=== PATIENT | male | born 1980 | race African-American/Black ===

== ENCOUNTER 2023-11-12 05:44 | Inpatient (IN) | payer OTHER ==
[2023-11-12] MEDS ORDERED: Insulin Regular 300 UNITS/3 ML VIAL ONE (07:32)
[2023-11-12 07:53] LABS: #Basophils 0.03 10x3/uL (0.0-0.2); #Monocytes 0.18 10x3/uL (0.0-1.1); #Neutrophils 1.79 10x3/uL (1.5-8.4); %Basophils 0.9 % (0.0-2.0); %Eosinophils 2.8 % (0.0-6.0); %Lymphocytes 40.1 % (18.0-47.0); %Monocytes 5.1 % (0.0-10.0); %Neutrophils 50.8 % (40.0-75.0); Hematocrit 35.5 % (38.8-50.0); Hemoglobin 13.1 g/dL (13.5-17.5); Mean Corpuscular HGB CONC 36.9 g/dL (32.0-36.0); Mean Corpuscular Hemoglobin 29.6 pg (27.0-33.0); Mean Corpuscular Volume 80.3 fL (81.2-95.1); Mean Platelet Volume 10.4 fL (7.4-10.4); Platelet Count 151 10x3/uL (150-450); RBC Distribution Width 12.7 % (11.5-14.5); Red Blood Cell (RBC) Count 4.42 10x6/uL (4.32-5.72); White Blood Cell (WBC) Count 3.5 10x3/uL (3.5-10.5)
[2023-11-12 08:01] LABS: Clarity Clear (Clear); Leukocyte Negative (Negative); Nitrite Negative (Negative); Specific Gravity, Urine 1.005 (1.005-1.030); pH, Urine 6.5 (5.0-9.0)
[2023-11-12 08:02] LABS: Bacteria/HPF Rare-Few HPF (None Seen); Bilirubin Negative (Negative); Blood, Urine Negative (Negative); Glucose, Urine (Dipstick) >=1000 mg/dL (Negative); Ketone, Urine Negative (Negative); Protein, Urine (Dipstick) Negative (Neg-Trace); RBC/HPF 0-3 HPF (0-3); Squamous Epithelial 0-3 HPF (0-3); Urobilinogen Normal mg/dL (Less than 2); WBC/HPF 0-3 HPF (0-3)
[2023-11-12 08:03] LABS: Urine Culture Reflex No No
[2023-11-12 08:17] LABS: Actual Bicarbonate (HCO3v) 28.2 mEq/L (22-28); Analyzer IN Cardio CS ER; Base Excess 2.8 mEq/L (-2 - +2); Calcium, Ionized (venous) 1.07 mmol/L (1.16-1.32); Chloride (VBG) 95 mmol/L (98-106); Critical Notified By: AS RT; Critical Notified Whom: NWAAS; Hematocrit-VBG 39 % (42.0-52.0); Hemoglobin (Hb) 13.3 g/dL (13.2-17.3); Potassium (VBG) 4.57 mmol/L (3.70-5.30); Puncture Site Other Site; RapidComm Collect By ERS.CCF; Sodium 130 mmol/L (133-146); pH (venous) 7.402 (7.32-7.43)
[2023-11-12 08:34] LABS: Anion Gap 14 mmol/L (10-20); BUN (Urea Nitrogen) 19 mg/dL (8.9-20.6); Calc. Creatinine Clearance 0 mL/min (70-130); Carbon Dioxide 26 mmol/L (22-29); Chloride 93 mmol/L (98-107); Estimated GFR 44; Potassium 4.4 mmol/L (3.5-5.1); Sodium 129 mmol/L (136-145); Troponin I Less than 0.010 ng/mL (< 0.028)
[2023-11-12 08:36] LABS: ALT (SGPT) 53 U/L (8-55); AST (SGOT) 59 U/L (5-34); Alkaline Phosphatase 58 U/L (40-110); Bilirubin, Total 1.2 mg/dL (0.2-1.2); Calcium 9.3 mg/dL (7.6-10.4); Globulin 2.8 g/dL (2.4-3.5); Glucose 682 mg/dL (70-105); Lipase 40 U/L (8-78); Magnesium 1.6 mg/dL (1.6-2.6); Protein, Total 6.8 g/dL (6.0-8.3)
[2023-11-12 08:38] LABS: Lactic Acid 1.6 mmol/L (0.5-2.2)
[2023-11-12 09:51] LABS: Free T4 (Free Thyroxine) 0.43 ng/dL (0.70-1.48)
[2023-11-12] MEDS ORDERED: Hydrocortisone Sod Succ/PF 100 mg/2 ml Vial ONE (10:47)
[2023-11-12] MEDS ORDERED: Senokot S 8.6-50 MG TAB PO PRN (12:21)
[2023-11-12] MEDS ORDERED: Ondansetron PF 4 MG/2 ML Vial IVP PRN (12:21)
[2023-11-12] MEDS ORDERED: Acetaminophen 650 MG Suppository PR PRN (12:21)
[2023-11-12] MEDS ORDERED: Acetaminophen 325 MG TAB PO PRN (12:21)
[2023-11-12] MEDS ORDERED: Ondansetron ODT 4 MG TAB PO PRN (12:21)
[2023-11-12] MEDS ORDERED: Glucagon 1 MG/ML KIT IM PRN (12:27)
[2023-11-12] MEDS ORDERED: Dextrose 50% Abboject 50 ML SYRINGE SLOW IVP PRN (12:27)
[2023-11-12] MEDS ORDERED: Dextrose 5% in Water 1,000 ML IV PRN (12:27)
[2023-11-12] MEDS ORDERED: Electrolyte Replacement Protocol 1 EACH FS SCH (12:30)
[2023-11-12 12:37] VITALS: BMI 24.2
[2023-11-12] MEDS: 1/2 NS w/Potassium 20 mEq 1,000 ML IV SCH (12:46)
[2023-11-12] MEDS: Levothyroxine 100 MCG SDV IVP SCH (12:47)
[2023-11-12] MEDS: SODIUM CHLORIDE FS SCH (12:47)
[2023-11-12] MEDS: Magnesium 2 GM/50 ML(in water) 2 GM in Premix 1 BAG IVPB SCH (12:50)
[2023-11-12] MEDS: Insulin Regular, Human 100 UNIT/ML 10 ML VIAL SC PRN (13:06)
[2023-11-12 13:20] LABS: Magnesium 1.7 mg/dL (1.6-2.6); Phosphorus 2.9 mg/dL (2.3-4.7)
[2023-11-12 13:50] LABS: Amphetamine Not Detected (NotDetected); Barbiturates Screen Not Detected (NotDetected); Benzodiazepine Screen Not Detected (NotDetected); Cocaine Metabolite Screen Detected (NotDetected); Methadone Not Detected (NotDetected); Methamphetamine Not Detected (NotDetected); Opiate Screen Not Detected (NotDetected); Oxycodone Screen Not Detected (NotDetected); Phencyclidine (PCP) Detected (NotDetected); THC/Cannabinoid Screen Not Detected (NotDetected); Tricyclic Screen Not Detected (NotDetected)
[2023-11-12] MEDS: Famotidine/PF 20 mg/2ml Vial SLOW IVP SCH (20:53)
[2023-11-12] MEDS: Atorvastatin Calcium 40 MG TAB PO SCH (20:53)
[2023-11-13 05:03] LABS: Anion Gap 10 mmol/L (10-20); BUN (Urea Nitrogen) 14 mg/dL (8.9-20.6); Calc. Creatinine Clearance 84 mL/min (70-130); Calcium 8.5 mg/dL (7.8-10.44); Carbon Dioxide 23 mmol/L (22-29); Chloride 106 mmol/L (98-107); Estimated GFR 73; Glucose 193 mg/dL (70-105); Magnesium 1.9 mg/dL (1.6-2.6); Potassium 4.1 mmol/L (3.5-5.1); Sodium 135 mmol/L (136-145)
[2023-11-13 05:27] LABS: #Basophils 0.02 10x3/uL (0.0-0.2); #Eosinphils 0.05 10x3/uL (0.0-0.5); #Monocytes 0.26 10x3/uL (0.0-1.1); #Neutrophils 3.18 10x3/uL (1.5-8.4); %Basophils 0.4 % (0.0-2.0); %Eosinophils 0.9 % (0.0-6.0); %Monocytes 4.8 % (0.0-10.0); %Neutrophils 58.5 % (40.0-75.0); Hematocrit 34.7 % (38.8-50.0); Hemoglobin 12.4 g/dL (13.5-17.5); Mean Corpuscular HGB CONC 35.7 g/dL (32.0-36.0); Mean Corpuscular Hemoglobin 29.1 pg (27.0-33.0); Mean Corpuscular Volume 81.5 fL (81.2-95.1); Mean Platelet Volume 10.5 fL (7.4-10.4); Platelet Count 143 10x3/uL (150-450); RBC Distribution Width 12.8 % (11.5-14.5); Red Blood Cell (RBC) Count 4.26 10x6/uL (4.32-5.72); White Blood Cell (WBC) Count 5.4 10x3/uL (3.5-10.5)
[2023-11-13] MEDS: Magnesium 2 GM/50 ML(in water) 2 GM in Premix 1 BAG IVPB SCH (05:50)
[2023-11-13] MEDS: Sodium Chloride 0.9% (PF) 10 ML VIAL FS SCH (05:51)
[2023-11-13] MEDS: Levothyroxine 100 MCG SDV IVP SCH (05:51)
[2023-11-13] MEDS: Enoxaparin 40 MG (0.4 mL) SYRINGE SC SCH (08:29)
[2023-11-13] MEDS: Hydrocortisone Sod Succ/PF 100 mg/2 ml Vial IVP SCH (08:31)
[2023-11-13] MEDS: Lantus 1000 UNITS/10 ML VIAL SC SCH ×2 (16:34→20:06)
[2023-11-13] MEDS: Famotidine 20 MG TAB PO SCH (20:04)
[2023-11-13] MEDS: Insulin Regular, Human 100 UNIT/ML 10 ML VIAL SC PRN (20:06)
[2023-11-14 04:29] LABS: #Basophils 0.02 10x3/uL (0.0-0.2); #Eosinphils 0.01 10x3/uL (0.0-0.5); #Monocytes 0.17 10x3/uL (0.0-1.1); #Neutrophils 4.21 10x3/uL (1.5-8.4); %Basophils 0.3 % (0.0-2.0); %Eosinophils 0.2 % (0.0-6.0); %Lymphocytes 23.9 % (18.0-47.0); %Monocytes 2.9 % (0.0-10.0); %Neutrophils 72.4 % (40.0-75.0); Hematocrit 36.2 % (38.8-50.0); Mean Corpuscular HGB CONC 35.9 g/dL (32.0-36.0); Mean Corpuscular Hemoglobin 29.1 pg (27.0-33.0); Mean Corpuscular Volume 81.2 fL (81.2-95.1); Mean Platelet Volume 10.5 fL (7.4-10.4); Platelet Count 159 10x3/uL (150-450); RBC Distribution Width 12.6 % (11.5-14.5); Red Blood Cell (RBC) Count 4.46 10x6/uL (4.32-5.72); White Blood Cell (WBC) Count 5.8 10x3/uL (3.5-10.5)
[2023-11-14 04:41] LABS: Anion Gap 12 mmol/L (10-20); BUN (Urea Nitrogen) 15 mg/dL (8.9-20.6); Calc. Creatinine Clearance 88 mL/min (70-130); Calcium 8.6 mg/dL (7.8-10.44); Carbon Dioxide 22 mmol/L (22-29); Chloride 106 mmol/L (98-107); Estimated GFR 76; Glucose 226 mg/dL (70-105); Magnesium 1.9 mg/dL (1.6-2.6); Potassium 4.2 mmol/L (3.5-5.1); Sodium 136 mmol/L (136-145)
[2023-11-14] MEDS: Magnesium 2 GM/50 ML(in water) 2 GM in Premix 1 BAG IVPB SCH (08:30)
[2023-11-14 08:44] VITALS: TEMP 98.3
[2023-11-14 10:12] VITALS: BP 97/68
[2023-11-14 13:48] LABS: Hemoglobin A1c 11.7 % (4.0-6.0)
[2023-11-15] MEDS ORDERED: Levothyroxine Sodium 125 MCG TAB PO SCH (06:00)
== END 2023-11-14 12:41 | disposition home or self-care (01) | DRG 81 ==
LOC: CSHERS 05:44 → CSHTELE 11:37
PROVIDERS: ADMIT Family Medicine; ATTEND Family Medicine
DX: E03.5 Myxedema coma (principal); N17.9 Acute kidney failure, unspecified; E03.9 Hypothyroidism, unspecified; F31.9 Bipolar disorder, unspecified; F19.10 Other psychoactive substance abuse, uncomplicated; E10.65 Type 1 diabetes mellitus with hyperglycemia; Z79.899 Other long term (current) drug therapy; Z79.4 Long term (current) use of insulin; Z91.148 Patient's other noncompliance with medication regimen for other reason
CPT/HCPCS: 36415; 36416; 80048; 80053; 80306; 81001; 82010; 82805; 83036; 83605; 83690; 83735; 83880; 83930; 84100; 84439; 84443; 84481; 84484; 85025; 87040; 93005; 93010; 94760; 96361; 96374; 96375; J1650; J1720; J1815; J3475; J3480; S0028

== ENCOUNTER 2023-12-16 18:57 | Emergency (ER) | payer OTHER ==
[2023-12-16] MEDS ORDERED: Ketorolac Tromethamine 30 MG (1 mL) VIAL ONE (19:23)
[2023-12-16 20:07] LABS: #Basophils 0.01 10x3/uL (0.0-0.2); #Eosinphils 0.02 10x3/uL (0.0-0.5); #Monocytes 0.57 10x3/uL (0.0-1.1); #Neutrophils 6.44 10x3/uL (1.5-8.4); %Basophils 0.1 % (0.0-2.0); %Eosinophils 0.3 % (0.0-6.0); %Lymphocytes 8.6 % (18.0-47.0); %Monocytes 7.4 % (0.0-10.0); %Neutrophils 83.1 % (40.0-75.0); Hematocrit 34.7 % (38.8-50.0); Hemoglobin 12.6 g/dL (13.5-17.5); Mean Corpuscular HGB CONC 36.3 g/dL (32.0-36.0); Mean Corpuscular Hemoglobin 29.9 pg (27.0-33.0); Mean Corpuscular Volume 82.4 fL (81.2-95.1); Platelet Count 155 10x3/uL (150-450); RBC Distribution Width 13.4 % (11.5-14.5); Red Blood Cell (RBC) Count 4.21 10x6/uL (4.32-5.72); White Blood Cell (WBC) Count 7.8 10x3/uL (3.5-10.5)
[2023-12-16 20:13] LABS: Anion Gap 16 mmol/L (10-20); BUN (Urea Nitrogen) 14 mg/dL (8.9-20.6); Calc. Creatinine Clearance 0 mL/min (70-130); Carbon Dioxide 24 mmol/L (22-29); Chloride 98 mmol/L (98-107); Estimated GFR 70; Glucose 254 mg/dL (70-105); Potassium 3.8 mmol/L (3.5-5.1); Sodium 134 mmol/L (136-145)
[2023-12-16 20:23] LABS: Bilirubin Neg (Negative); Blood, Urine 25 (Negative); Clarity Clear (Clear); Glucose, Urine (Dipstick) >=1000 mg/dL (Negative); Ketone, Urine Negative (Negative); Leukocyte Negative (Negative); Nitrite Negative (Negative); Protein, Urine (Dipstick) 30 mg/dl (Neg-Trace); Specific Gravity, Urine 1.015 (1.005-1.030)
[2023-12-16 20:29] LABS: Bacteria/HPF None Seen HPF (None Seen); CAUTI Indications for Culture Pelvic or flank pain; RBC/HPF 0-3 HPF (0-3); Squamous Epithelial 0-3 HPF (0-3); Urine Culture Reflex No No
[2023-12-16 20:36] LABS: Influenza A by NAA Not Detected (NotDetected); Influenza B by NAA Not Detected (NotDetected); SARS-CoV-2 NAA Rapid Test Not Detected (NotDetected)
[2023-12-16] MEDS ORDERED: cefTRIAXone (ROCEPHIN) 2 GM VIAL ONE (20:56)
== END 2023-12-16 22:28 | disposition home or self-care (01) ==
LOC: CSHERS 18:57
DX: J18.9 Pneumonia, unspecified organism (principal); E11.9 Type 2 diabetes mellitus without complications; E05.90 Thyrotoxicosis, unspecified without thyrotoxic crisis or storm; Z79.899 Other long term (current) drug therapy; Z79.4 Long term (current) use of insulin
CPT/HCPCS: 36415; 71045; 80048; 81001; 83605; 85025; 87040; 96361; 96365; 96375; J0696; J1885